=== PATIENT | male | born 1950 | race Caucasian/White ===

== ENCOUNTER 2022-05-18 11:50 | Emergency (ER) | payer OTHER ==
[~2022-05-18] VITALS: Ht 182.9 cm; Wt 94.3 kg
[2022-05-18 13:02] LABS: BASOPHILS % (AUTO) 0.7 % (0.0-5.0); EOSINOPHILS % (AUTO) 6.5 % (0.0-8.0); HEMATOCRIT 31.2 % (42-54); LYMPHOCYTES % (AUTO) 13.2 % (21.0-51.0); MEAN CORPUSCULAR HEMOGLOBIN 36.5 pg (27.0-33.0); MEAN CORPUSCULAR VOLUME 110.6 fL (79-99); MONOCYTES % (AUTO) 12.2 % (3.0-13.0); NEUTROPHILS % (AUTO) 67.1 % (40.0-77.0); PLATELET COUNT (AUTO) 136 K/uL (130-400); RED BLOOD CELL COUNT(AUTO) 2.82 MIL/uL (4.50-6.20); RED CELL DISTRIBUTION WIDTH 14.1 % (11.0-15.5)
[2022-05-18 13:17] LABS: CREATININE 2.8 mg/dL (0.5-1.5); POTASSIUM 4.6 mmol/L (3.5-5.1)
[2022-05-18 13:22] LABS: ALBUMIN 3.4 g/dL (3.5-5.0); TOTAL PROTEIN, SERUM 7.5 g/dL (6.0-8.3)
[2022-05-18 13:45] LABS: APPEARANCE,URINE TURBID (CLEAR); BILIRUBIN,URINE SMALL mg/dL (NEGATIVE); COLOR,URINE YELLOW (YELLOW); GLUCOSE, URINE (UA) NEGATIVE (NEGATIVE); KETONES,URINE 5 mg/dL (NEGATIVE); LEUKOCYTE ESTERASE ,URINE LARGE Leu/uL (NEGATIVE); NITRATE,URINE NEGATIVE (NEGATIVE); OCCULT BLOOD,URINE LARGE (NEGATIVE); PROTEIN,URINE >=300 mg/dL (NEGATIVE); UROBILINOGEN,URINE 0.2 mg/dL (0.2-1.0)
[2022-05-18 13:56] LABS: BACTERIA,URINE Moderate /HPF (None Seen); RBC,URINE TNTC /HPF (0-1); WBC,URINE TNTC /HPF (0-1)
[2022-05-18] MEDS ORDERED: CEFTRIAXONE 1G VIAL IM ONE (14:00)
[2022-05-18] MEDS ORDERED: PHENAZOPYRIDINE HCL 200 MG TABLET PO ONE (14:00)
[2022-05-18] MEDS ORDERED: LIDOCAINE HCL 1% 20 ML VIAL ONE (14:19)
[2022-05-18] MEDS ORDERED: CEFTRIAXONE 1G VIAL ONE (14:19)
[2022-05-18] MEDS ORDERED: PHENAZOPYRIDINE HCL 200 MG TABLET ONE (14:20)
[2022-05-18] MEDS ORDERED: CEFU500T67 PO (14:46)
[2022-05-18] MEDS ORDERED: PHEN-847 PO (14:46)
[2022-05-18 15:11] VITALS: BP 121/76
== END 2022-05-18 15:12 | disposition home or self-care (01) ==
LOC: EDH 11:50
DX: N39.0 Urinary tract infection, site not specified (principal); I10 Essential (primary) hypertension; Z79.899 Other long term (current) drug therapy; Z85.9 Personal history of malignant neoplasm, unspecified
CPT/HCPCS: 99284; 80053; 85025; 87088; 83605; 81001; 36415; 96372; J0696

== ENCOUNTER 2024-06-08 11:49 | Emergency (ER) | payer OTHER, MEDICARE ==
[~2024-06-08] VITALS: Ht 182.9 cm; Wt 100.2 kg
[~2024-06-08 11:49] MED LIST: CEFU500T67 PO; PHEN-847 PO
[2024-06-08] MEDS ORDERED: acetaMINOPHEN 500 MG TABLET PO STA (11:57)
--- NOTE | 2024-06-08 12:05 | ERN ---
ED Note History of Present Illness Stated Complaint: FALL Chief Complaint: Head, Face, Neck Trauma Time Seen by MD: 11:51 Time Seen by Midlevel: 11:51 Dictation: 73-year-old male presents to the ED for evaluation of headache for the past two days. Patient reports he rolled off the bed three nights ago hit the back of his head and has had a continued headache since. Denies LOC, nausea, vomiting, dizziness, altercation. Past medical history includes hypertension, Parkinson's. Not on any blood thinners. Allergies: Coded Allergies: Fish Containing Products (Unverified Allergy, Unknown, 01/11/17) Iodinated Contrast- Oral and IV Dye (Unverified Allergy, Unknown, 01/11/17) No Allergy Information Available (Verified Allergy, Unknown, 12/20/16) No Known Drug Allergies (Unverified Allergy, Unknown, 01/11/17) Home Meds Active Scripts Phenazopyridine HCl (Pyridium) 200 Mg Tab, 200 MG PO TIDPC, #15 TAB TAKE WITH FOOD TO PREVENT STOMACH UPSET. Prov:CLARIBEL CARMEN MD 05/18/22 Cefuroxime Axetil (Cefuroxime) 500 Mg Tablet, 500 MG PO BID for 7 Days, #14 TAB Prov:CLARIBEL CARMEN MD 05/18/22 Past Medical History Past Medical History: Cancer, Hypertension, Prostatitis, Other Additional Past Medical Hx: PARKINSONS Surgical History: None Social History: Negative, Lives with family RN Note Reviewed/Agreed w/PFSH: Yes Review of System Dictation Constitutional: Negative for fever,chills, and weight loss Eyes: Negative for injury, pain,redness, and discharge ENT: Negative for injury,pain or swelling Cardiovascular: Negative for chest pain, palpitations, and edema Respiratory: Negative for shortness of breath, cough, and wheezing, Abdomen/GI: Negative for abdominal pain, nausea, vomiting, diarrhea, and constipation Back: Negative for injury and pain : Negative for injury, bleeding and discharge MS/Extremity: Negative for injury and deformity Skin: Negative for rash, and discoloration Neuro: Negative for weakness, numbness, tingling, and seizure Psych: Negative for suicide ideation, homicidal ideation, and hallucinations Review of Systems: was completed Initial Vital Sign VS Vital Signs Date Time Temp Pulse Resp B/P (MAP) Pulse Ox O2 Delivery O2 Flow Rate FiO2 06/08/24 11:52 98.1 74 16 136/68 98 Room Air Physical Exam Dictation General: awake, alert, NAD Head/Face: Normocephalic, atraumatic Eyes: PERRL, EOMI, vision at baseline ENT: oral cavity clear, TMs clear, no signs of infection Neck: Trachea midline, supple, no nuchal rigidity Cardiovascular: RRR, normal S1/S2, No MRGs, no JVD Respiratory: CTAB, no respiratory distress, No rales or wheezes Abdomen: Soft, non-tender, non-distended, normal bowel sounds, no guarding or rebound. Skin: Warm, dry, normal turgor, no rash MS/Extremity: Pulses equal, no cyanosis, neurovascular intact, FROM Neuro: COAx4, GCS 15, strength 5/5, CN 2-12 intact, normal cerebellar exam, nor mal gait, normal [id number], normal aahs-[id number]. No visualized nystagmus Psych: Normal behavior, mood, and affect normal Results (Laboratory/Radiology) Laboratory/Radiology REASON: head injury ORDERING PHYSICIAN: DINORAH BERGERON PROCEDURE: HEAD WO - CT HEAD/BRAIN W/O CONTRAST CT HEAD/BRAIN W/O CONTRAST HISTORY: Status post fall COMPARISON: None TECHNIQUE: Multiple sequential axial images of the head were obtained from the base of the skull through vertex. Patient was not given contrast through intravenous route. FINDINGS: The ventricles and extraventricular CSF spaces are dilated consistent with cerebral atrophy. Nonspecific white matter changes seen. There is no midline shift, mass effect or herniation. No acute intracranial bleed is seen. Visualized portion of the paranasal sinuses are grossly within normal limits. Post right craniotomy changes are seen. IMPRESSION: 1. No acute intracranial bleed is seen. 2. Atrophy with white matter changes. REASON: head injury ORDERING PHYSICIAN: DINORAH BERGERON PROCEDURE: C SPIN WO - CT CERVICAL SPINE W/O CONTRAST CT CERVICAL SPINE W/O CONTRAST HISTORY: No additional history given. COMPARISON: None TECHNIQUE: Multiple sequential axial images of the cervical spine were obtained including post processing sagittal and coronal reconstruction images. Patient was not given contrast through intravenous route. FINDINGS: There are degenerative changes of cervical spine spondylosis. Disc space narrowing are seen at C5-6 and C6-7 levels. There is straightening of normal lordotic cervical curvature which may be related to muscle spasm or positioning. There is no loss of vertebral height. Evaluation for disc and cord pathology is limited with CT study. No evidence of fracture or dislocation is seen. IMPRESSION: 1. No fracture is seen. Labs Reviewed?: Yes ED Course ED Course Orders Procedure Category Date Status Time Ct Head/Brain W/O CT 06/08/24 Resulted Contrast 11:57 Ct Cervical Spine W/O CT 06/08/24 Resulted Contrast 11:57 Acetaminophen 500mg PHA 06/08/24 Complete Tab (Tylenol 500mg T 11:57 Current Medications Medications (Trade) Dose Ordered Sig/Jodee Route PRN Reason Start Time Stop Time Status Last Admin Dose Admin Acetaminophen (TYLenol 500MG TAB) 1,000 mg ONCE STAT PO 06/08/24 11:57 06/08/24 12:00 DC Vital Signs Date Time Temp Pulse Resp B/P (MAP) Pulse Ox O2 Delivery O2 Flow Rate FiO2 06/08/24 11:52 98.1 74 16 136/68 98 Room Air Medical Decision Making MDM MDM: Differential diagnosis: Headache, fall, ICH, Parkinson's, migraine Need for hospitalization: Patient does meet criteria for hospitalization. Need for emergency major/minor surgery: No I independently interpreted the test that were performed, results were reviewed by me and considered findings on radiology if ordered. Medical management and examination interpretation discussions were had by me with other qualified healthcare professionals as indicated for the patient's care. 73-year-old male presents to the ED for evaluation of headache for the past two days. Patient reports he rolled off the bed three nights ago hit the back of his head and has had a continued headache since. Denies LOC, nausea, vomiting, dizziness, altercation. Past medical history includes hypertension, Hermilo on's. Not on any blood thinners. Patient was neurologically intact. Alert and oriented x4. No slurred speech, altered coordination. Normal [id number]. No visualized nystagmus. Normal [id number]. No neurological weakness, deficits. Equal employee communications specialist strength bilaterally. Normal sensation bilaterally. Head is atraumatic do not visualize any hematomas noted. CT scan of the head and cervical neck were ordered to rule out ICH already fracture due to patient's continue headache after the fall. CT scan of the head and cervical neck were negative. No evidence of ICH or fracture. Patient was given dose of Tylenol he re in the ER. Patient was discharged home in stable condition recommended to follow up PCP. Patient recommended to take Tylenol for pain. Return precautions discussed with patient. Patient verbalized understanding, agreed with plan, and all questions were answered at this time. DX & DISP Disposition: Discharge Departure Impression: Primary Impression: Fall Additional Impression: Closed head injury without loss of consciousness Condition: Stable Additional Instructions: DISCHARGE HOME. REST. FOLLOW UP WITH PRIMARY CARE DRSameer IN 24 HOURS. RETURN TO THE ER FOR ANY ACUTE CHANGE. PATIENT WAS ALSO ADVISED TO FOLLOW-UP WITH PRIMARY CARE PHYSICIAN IN 1 TO 2 DAYS FOR CONTINUED MONITORING. ALL INSTRUCTIONS WERE GIVEN TO LAYMANS TERM AND PATIENT AGREEABLE TO DISCHARGE AND PROPER FOLLOW-UP. Referrals: SELF,REFERRAL (PCP) I have reviewed the case, and I agree with, Diagnosis and Plan DINORAH BERGERON Jun 08, 2024 12:05
--- NOTE | 2024-06-08 13:09 | HMCIMG ---
CT HEAD/BRAIN W/O CONTRAST HISTORY: Status post fall COMPARISON: None TECHNIQUE: Multiple sequential axial images of the head were obtained from the base of the skull through vertex. Patient was not given contrast through intravenous route. FINDINGS: The ventricles and extraventricular CSF spaces are dilated consistent with cerebral atrophy. Nonspecific white matter changes seen. There is no midline shift, mass effect or herniation. No acute intracranial bleed is seen. Visualized portion of the paranasal sinuses are grossly within normal limits. Post right craniotomy changes are seen. IMPRESSION: 1. No acute intracranial bleed is seen. 2. Atrophy with white matter changes. CT was performed with one or more following dose reduction techniques: automated exposure control, adjustment of the mA and kv according to patient's size, or use of a iterative reconstruction technique.
--- NOTE | 2024-06-08 13:14 | HMCIMG ---
CT CERVICAL SPINE W/O CONTRAST HISTORY: No additional history given. COMPARISON: None TECHNIQUE: Multiple sequential axial images of the cervical spine were obtained including post processing sagittal and coronal reconstruction images. Patient was not given contrast through intravenous route. FINDINGS: There are degenerative changes of cervical spine spondylosis. Disc space narrowing are seen at C5-6 and C6-7 levels. There is straightening of normal lordotic cervical curvature which may be related to muscle spasm or positioning. There is no loss of vertebral height. Evaluation for disc and cord pathology is limited with CT study. No evidence of fracture or dislocation is seen. IMPRESSION: 1. No fracture is seen. CT was performed with one or more following dose reduction techniques: automated exposure control, adjustment of the mA and kv according to patient's size, or use of a iterative reconstruction technique.
[2024-06-08 14:40] VITALS: BP 159/81; PULSE 65; RESP 18; TEMP 98.2; O2SAT 100
== END 2024-06-08 14:30 | disposition home or self-care (01) ==
LOC: EDH 11:49
DX: S09.8XXA Other specified injuries of head, initial encounter (principal); G20.A1 Parkinson's disease without dyskinesia, without mention of fluctuations; I10 Essential (primary) hypertension; Z91.041 Radiographic dye allergy status; Z79.899 Other long term (current) drug therapy; W06.XXXA Fall from bed, initial encounter; Y93.89 Activity, other specified; Y92.89 Other specified places as the place of occurrence of the external cause; Y99.8 Other external cause status
CPT/HCPCS: 70450; 72125; 99284